=== PATIENT | female | born 1980 | race Caucasian/White ===

== ENCOUNTER → 2023-10-21 | Emergency (ER) | payer OTHER, SELFPAY ==
[~2023-10-21] MED LIST: BISACODYL E.C. 5 MG TAB PO ONE; KETOROLAC 30 MG/ML INJ ONE; NA CHLORIDE 0.9% 1,000 ML ONE; POTASSIUM CL SA 10 MEQ TAB PO ONE
--- OUTSIDE RECORDS SUMMARY | 2023-10-21 23:13 | XMS REPORT | Continuity of Care Document ---
Author Name Unknown Address [address] [place] [address] [address] [employer] Address [address] [place] [address]. 1 [address] [place] [address] Care Team Providers Care Death Claim Clerk Name Role Phone Unavailable Unavailable Unavailable Encounters Start Date/Time End Date/Time Encounter Type Admission Type Attending Clinicians Care Facility Care Department Encounter ID Source 2023-07-04 13:36:11 2023-07-04 13:36:11 Outpatient [facility] [id number] Anival Moya
[2023-10-22 00:11] LABS: Absolute Lymphocytes (CBC) 6.5 K/uL (0.7-4.9); Hematocrit 45.7 % (36.0-45.0); Lymphocytes % 39.9 % (15.3-44.8); MCV 93.9 fL (80-100); MPV 10.1 fL (7.6-11.3); Platelets 330 thou/uL (152-406); RBC Red Blood Cell Count 4.87 M/uL (3.86-4.86)
[2023-10-22 00:22] LABS: Albumin 3.7 g/dL (3.4-5.0); Bilirubin Total 0.5 mg/dL (0.2-1.0); Protein, Total 8.5 g/dL (6.4-8.2)
[2023-10-22 01:07] LABS: Specific Gravity 1.007 (1.005-1.030); Urine Bacteria >50 /HPF (<20); Urine Bilirubin NEGATIVE (Negative); Urine Blood Negative (Negative); Urine Clarity Extremely Turbid (Clear); Urine Color Light-Yellow (Yellow); Urine Glucose NEGATIVE (Negative); Urine Protein NEGATIVE (Negative); Urine RBC None Seen /HPF (None Seen); Urine Urobilinogen Normal (Normal); Urine pH 5.5 (5.0-7.0)
--- NOTE | 2023-10-22 01:10 | EDPHYS ---
Physician Documentation [facility] Name: Krystle Packer Age: 43 yrs Sex: Female : 1980 Arrival Date: 10/21/2023 Time: 23:10 Bed IW10 Private MD: ED Physician Conrad Ray HPI: 10/22 01:07 This 43 yrs old Female presents to ER via Ambulatory with complaints of Shortness Of kb Breath, Diarrhea. 01:07 Patient is a 43-year-old female with a history of hypertension who presents for kb abdominal pain, decreased appetite and constipation for 1 week. Denies fever, nausea, vomiting, diarrhea.. 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 - Social history:: Smoking status: Patient reports the use of cigarette tobacco products, smokes one-half pack cigarettes per day. ROS: 10/22 01:07 Constitutional: Negative for fever, chills, and weight loss, kb Constitutional: Positive for poor PO intake, Abdomen/GI: Positive for abdominal pain, constipation, All other systems are negative, Exam: 01:07 Constitutional: This is a well developed, well nourished patient who is awake, alert, kb and in no acute distress. Head/Face: Normocephalic, atraumatic. ENT: Moist Mucous membranes Cardiovascular: Regular rate Respiratory: Respirations even and unlabored. No increased work of breathing. Talking in full sentences Skin: Warm, dry with normal turgor. Normal color. MS/ Extremity: Pulses equal, no cyanosis. Neurovascular intact. Full, normal range of motion. Neuro: Awake and alert, GCS 15, oriented to person, place, time, and situation. Moves all extremities. Normal gait. 01:07 Abdomen/GI: Inspection: abdomen appears normal, Bowel sounds: normal, Palpation: soft, in all quadrants, mild abdominal tenderness, in the left lower quadrant, Vital Signs: 10/21 23:25 BP 105 / 94; Pulse 62; Resp 16 S; Temp 97.7(TE); Pulse Ox 97% on R/A; Weight 99.79 kg as6 (R); Height 5 ft. 4 in. (R); Pain 07/07; 10/22 01:20 BP 142 / 94; Pulse 116; Resp 20; Pulse Ox 100% ; jj7 02:15 BP 140 / 89; Pulse 100; Resp 20; Pulse Ox 98% ; jj7 10/21 23:25 Body Mass Index 37.76 (99.79 kg, 162.56 cm) as6 10/21 23:25 Pain Scale: Adult as6 MDM: 10/21 23:24 Patient medically screened. kb 10/22 01:07 Differential diagnosis: enteritis, constipation, bowel obstruction. Data reviewed: kb vital signs, nurses notes. Counseling: I had a detailed discussion with the patient and/or guardian regarding the historical points, exam findings, and any diagnostic results supporting the discharge/admit diagnosis, lab results, radiology results, the need for outpatient follow up, a family practitioner, to return to the emergency department if symptoms worsen or persist or if there are any questions or concerns that arise at home. 10/21 23:29 Order name: CBC with Diff; Complete Time: 00:12 kb 10/21 23:29 Order name: CMP; Complete Time: 00:26 kb 10/21 23:29 Order name: Lipase; Complete Time: 00:26 kb 10/21 23:29 Order name: Urinalysis w/ reflexes; Complete Time: 01:09 kb 10/21 23:29 Order name: CT Abd/Pelvis - IV Contrast Only kb 10/21 23:29 Order name: IV Saline Lock; Complete Time: 23:34 kb 10/21 23:29 Order name: Labs collected and sent; Complete Time: 23:34 kb Administered Medications: 01:15 Drug: NS 0.9% IV 1000 ml IV at 1 bolus Per protocol; 1000 mL bolus Route: IV; Rate: 1 jj7 bolus; Site: right antecubital; 02:15 Follow up: IV Status: Completed infusion j7 01:20 Drug: Dulcolax PO Delayed Release Tablet 5 mg PO once Route: PO; 01:54 Follow up: Response: No adverse reaction j7 01:20 Drug: Potassium Chloride PO 40 mEq PO once Route: PO; 01:54 Follow up: Response: No adverse reaction jj7 01:54 Drug: Ketorolac IVP 15 mg IVP once Route: IVP; Site: right antecubital; jj7 02:15 Follow up: Response: Marked relief of symptoms jj7 Disposition: 02:04 Co-signature as Attending Physician, Conrad Ray MD I agree with the assessment sp4 and plan of care. I reviewed the patient's care provided by Advanced Practice Provider \T\ agree w/ the diagnosis \T\ care plan. I personally saw the pt \T\ performed a substantive portion of the visit, incldng all aspects of the (History/Exam/Medical Decision Making). Disposition Summary: 10/22/23 01:09 Discharge Ordered Notes: Location: Home kb Condition: Stable kb Diagnosis - UTI/ Urinary tract infection, site not specified kb - Constipation, unspecified kb Followup: kb - With: Emergency Department - When: As needed - Reason: Worsening of condition Followup: kb - With: Private Physician - When: 2 - 3 days - Reason: Recheck today's complaints, Continuance of care, Re-evaluation by your physician Discharge Instructions: - Discharge Summary Sheet kb - Urinary Tract Infection, Adult, [id number] kb Forms: - Medication Reconciliation Form kb - Thank You Letter kb - Antibiotic Education kb - Prescription Opioid Use kb - Patient Portal Instructions kb - Leadership Thank You Letter kb Prescriptions: - Augmentin 875-125 mg Oral Tablet - take 1 tablet ORAL route every 12 hours for 10 days; 20 tablet; Refills: 0, kb Product Selection Permitted Signatures: Dispatcher [employer] Jenna Tijerina, JOVANA HASTINGS-Selvin Rodriguez RN RN as6 Pablo Bradley RN RN jj7 Conrad Ray MD MD sp4
--- NOTE | 2023-10-22 01:10 | ER ---
Nurse's Notes [facility] Name: Krystle Packer Age: 43 yrs Sex: Female : 1980 Arrival Date: 10/21/2023 Time: 23:10 Bed IW10 Private MD: Diagnosis: UTI/ Urinary tract infection, site not specified;Constipation, unspecified Presentation: 10/21 23:25 Chief complaint: Patient states: abdominal pain, decreased appetite, constipation x1 as6 week. Coronavirus screen: At this time, the client does not indicate any symptoms associated with coronavirus-19. Ebola Screen: No symptoms or risks identified at this time. Initial Sepsis Screen: Does the patient meet any 2 criteria? No. Patient's initial sepsis screen is negative. Does the patient have a suspected source of infection? No. Patient's initial sepsis screen is negative. Risk Assessment: Do you want to hurt yourself or someone else? Patient reports no desire to harm self or others. Onset of symptoms was October 14, 2023. 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 - Social history:: Smoking status: Patient reports the use of cigarette tobacco products, smokes one-half pack cigarettes per day. Screenin:45 [facility] ED Fall Risk Assessment (Adult) Score/Fall Risk Level 0 - 2 = Low Risk. Abuse as6 screen: Denies threats or abuse. Denies injuries from another. Nutritional screening: No deficits noted. Tuberculosis screening: No symptoms or risk factors identified. Assessment: 23:44 General: Appears in no apparent distress. Behavior is calm, appropriate for age. Pain: as6 Complains of pain in abdomen. Neuro: Level of Consciousness is awake, alert, obeys commands, Oriented to person, place, time, situation. Cardiovascular: Capillary refill < 3 seconds Patient's skin is warm and dry. Respiratory: Respiratory effort is even, unlabored, Respiratory pattern is regular, symmetrical. GI: Reports lower abdominal pain, upper abdominal pain, constipation, intolerance of food. Vital Signs: 23:25 BP 105 / 94; Pulse 62; Resp 16 S; Temp 97.7(TE); Pulse Ox 97% on R/A; Weight 99.79 kg as6 (R); Height 5 ft. 4 in. (R); Pain 9/10; 10/22 01:20 BP 142 / 94; Pulse 116; Resp 20; Pulse Ox 100% ; jj7 02:15 BP 140 / 89; Pulse 100; Resp 20; Pulse Ox 98% ; jj7 10/21 23:25 Body Mass Index 37.76 (99.79 kg, 162.56 cm) as6 10/21 23:25 Pain Scale: Adult as6 ED Course: 10/21 23:23 Patient arrived in ED. gm2 23:24 Jenna Bedoya FNP-C is PHCP. kb 23:24 Conrad Ray MD is Attending Physician. kb 23:25 Arm band placed on. as6 23:28 Triage completed. as6 23:34 Inserted saline lock: 20 gauge in right antecubital area, using aseptic technique. as6 Blood collected. 10/22 00:50 CT Abd/Pelvis - IV Contrast Only In Process Unspecified. EDMS 01:20 Patient has correct armband on for positive identification. Bed in low position. Call jj7 light in reach. Side rails up X 1. Adult w/ patient. Warm blanket given. 02:15 No provider procedures requiring assistance completed. IV discontinued, intact, jj7 bleeding controlled, No redness/swelling at site. Pressure dressing applied. Administered Medications: 01:15 Drug: NS 0.9% IV 1000 ml IV at 1 bolus Per protocol; 1000 mL bolus Route: IV; Rate: 1 jj7 bolus; Site: right antecubital; 02:15 Follow up: IV Status: Completed infusion j7 01:20 Drug: Dulcolax PO Delayed Release Tablet 5 mg PO once Route: PO; j7 01:54 Follow up: Response: No adverse reaction jj7 01:20 Drug: Potassium Chloride PO 40 mEq PO once Route: PO; j7 01:54 Follow up: Response: No adverse reaction j7 01:54 Drug: Ketorolac IVP 15 mg IVP once Route: IVP; Site: right antecubital; jj7 02:15 Follow up: Response: Marked relief of symptoms jj7 Medication: 10/21 23:45 VIS not applicable for this client. as6 Outcome: 10/22 01:09 Discharge ordered by MD. betancourt 02:15 Discharged to home ambulatory, with significant other, jj7 02:15 Condition: improved 02:15 Discharge instructions given to patient, Instructed on discharge instructions, no driving heavy equipment, Demonstrated understanding of instructions, medications, Prescriptions given X 1, 05:28 Patient left the ED. jj7 Signatures: Dispatcher [employer] EDVT Jenna Bedoya, CARPENTER HELPER MAINTENANCE-C CARPENTER HELPER MAINTENANCE-Selvin Rodriguez RN RN as6 Pablo Bradley RN RN jj7 Cyndy Sal[facility]
[2023-10-22 06:04] VITALS: BP 140/89; TEMP 97.7; O2SAT 98
--- NOTE | 2023-10-22 14:10 | RAD REPORT ---
EXAM DESCRIPTION: CT - Abdomen Pelvis W Contrast - 10/22/2023 6:33 am CLINICAL HISTORY: 43 years Female, ABD PAIN TECHNIQUE: Helical CT axial images are obtained from the lung bases to the pubic symphysis with IV c ontrast. No oral contrast was administered. Multiplanar reconstruction. This exam was performed accor ding to our departmental dose-optimization program, which includes automated exposure control, adjust ment of the mA and/or kV according to patient size and/or use of iterative reconstruction technique. COMPARISON: None. FINDINGS: LUNG BASES: No basilar consolidation or effusions. LIVER: Normal in size. Mild diffuse decreased attenuation. No focal masses. HEPATOBILIARY: Mildly distended gallbladder with multiple calcified gallstones. No intra- or extrah epatic ductal dilatation. SPLEEN: Normal size. PANCREAS: Normal size and contour. No focal mass. ADRENAL GLANDS: Normal size. No adrenal masses. KIDNEYS: Bilateral kidneys are normal in size without obstructing calculi or hydronephrosis. Minima l right nephrolithiasis with a 2 mm nonobstructing calculus within the right midpole. No left nephrol ithiasis. No significant cysts are present. No focal solid mass. BOWEL AND MESENTERY: Fluid-filled mildly distended duodenum. Remainder of the small bowel is fluid-fi lled but not distended. Diffuse colonic fecal retention without bowel dilatation.. No small or large bowel dilatation. Sigmoid colon diverticulosis. Normal appendix. No abnormal mesenteric lymphadenop athy. No free fluid or pneumoperitoneum. RETROPERITONEUM: Normal caliber abdominal aorta without aneurysm. No abnormal retroperitoneal lymphad enopathy. PELVIS: Urinary bladder is suboptimally distended. Uterus and adnexal regions are unremarkable. ABDOMINAL WALL: The abdominal wall is intact. BONES: No suspicious osseous lytic or blastic lesions seen. IMPRESSION: 1. Fluid-filled mildly distended duodenum. Remainder of the small bowel is fluid-fille d but not distended. Findings are nonspecific but can be seen in the setting of enteritis. 2. Diffuse colonic fecal retention without bowel dilatation. Correlate for constipation. 3. Sigmoid colon diverticulosis without diverticulitis. 4. Mildly distended gallbladder with multiple calcified gallstones. No CT evident cholecystitis. 5. Mild hepatic steatosis. 6. Minimal nonobstructing right nephrolithiasis. Electronically signed by: Korey Feliciano MD 10/22/2023 01:02 AM DRUG AND ALCOHOL TREATMENT SPECIALIST Due to temporary technical issues with the PACS/Fluency reporting system, reports are being signed by the in house radiologists without review as a courtesy to insure prompt reporting. The interpreting radiologist is fully responsible for the content of the report.
== END ==
LOC: ER 23:10
DX: N39.0 Urinary tract infection, site not specified (principal); K59.00 Constipation, unspecified
CPT/HCPCS: 36415; 74177; 80053; 81001; 83690; 85025; 96361; 96374; 99284; Q9967